=== PATIENT | male | born 1990 | race Caucasian/White ===

== ENCOUNTER 2017-04-01 23:29 | Emergency (ER) | payer SELFPAY ==
--- NOTE | 2017-04-02 00:25 | NUR ---
Patient's female visitor was observed yelling at trust clerk, demanding to be seen.
--- NOTE | 2017-04-02 00:30 | NUR ---
PATIENT CAME TO WINDOW, VERBALLY ABUSIVE TOWARDS STAFF. TOLD HIM WILL CALL HIM IN A FEW MINUTES.
--- NOTE | 2017-04-02 00:35 | NUR ---
PATIENT NOT IN WAITING ROOM ANYMORE. LEFT WITHOUT BEING TRIAGED.
== END 2017-04-02 07:57 | disposition left against medical advice (07) ==
LOC: ER 23:30
DX: Z53.21 Procedure and treatment not carried out due to patient leaving prior to being seen by health care provider (principal)